=== PATIENT | male | born 1990 | race Caucasian/White ===

== ENCOUNTER 2021-10-28 13:17 | Emergency (ER) | payer SELFPAY ==
[2021-10-28] MEDS ORDERED: Sodium Chloride 0.9% 2.5 ML Syringe FLUSH PRN (13:52)
[2021-10-28] MEDS ORDERED: Sodium Chloride 0.9% 10 ML Syringe FLUSH PRN (13:52)
[2021-10-28] MEDS ORDERED: Alum Hydro/Mag Hydro/Simeth XS 15 ML, Lidocaine 2% 5 ML PO ONE ×2 (13:53)
[2021-10-28 14:35] LABS: BLOOD UREA NITROGEN,BUN 10 mg/dL (7.0-18.0); CARBON DIOXIDE,CO2 27.8 mmol/L (21.0-32.0); CHLORIDE,CL 103 mmol/L (98-107); GLUCOSE RANDOM 108 mg/dL (74-106); POTASSIUM,K 3.3 mmol/L (3.5-5.1); SODIUM,NA 140 mmol/L (136-148)
== END 2021-10-28 15:07 | disposition home or self-care (01) ==
LOC: MW.ED 13:17
DX: K21.9 Gastro-esophageal reflux disease without esophagitis (principal); I10 Essential (primary) hypertension; I25.10 Atherosclerotic heart disease of native coronary artery without angina pectoris; E11.9 Type 2 diabetes mellitus without complications
CPT/HCPCS: 36415; 71045; 80053; 84484; 85025; 93005; 99285; A9270; J3490; 93010; 99283